=== PATIENT | male | born 1980 | race Caucasian/White ===

== ENCOUNTER 2021-09-11 11:28 | Emergency (ER) | payer OTHER, SELFPAY ==
[2021-09-11 11:45] VITALS: BP 141/89; PULSE 96; RESP 20; O2SAT 96; BMI 30.3
[2021-09-11] MEDS: LORazepam 2 MG/ML INJ 1 MG IV (11:58)
--- NOTE | 2021-09-11 12:16 | ED.ARRPALP ---
HPI - Arrhythmia/Palpitations <Palmer Carballo PA-C - Last Filed: 09/11/21 13:11> General Chief Complaint: Arrhythmia/Palpitations Stated Complaint: Rapid HR,hx PE Time Seen by Provider: 09/11/21 11:56 Source: patient Mode of arrival: Wheelchair History of Present Illness HPI narrative: Patient is a 40-year-old male who presents to the ED reporting tachycardia shortness of breath and associated back pain. Patient reports that last year after receiving the COVID by vaccine he developed a pulmonary embolism couple weeks after receiving the vaccine. His symptoms at that time were very nonspecific majority of his symptoms involved significant back pain with associated shortness of breath. Today his symptoms are similar however his back pain is reported to be not as severe. Prior to arriving to the ED patient reports having the sense of a panic attack with associated tachycardia in the 160s. Patient denies any recent trauma. No associated nausea vomiting diarrhea fever cough congestion. Patient was treated last week for a URI with a Zithromax in of which he completed. Patient denies any cough hemoptysis. Related Data Allergies Allergy/AdvReac Type Severity Reaction Status Date / Time No Known Drug Allergies Allergy Verified 09/11/21 11:46 Review of Systems <Palmer Carballo PA-C - Last Filed: 09/11/21 13:11> Review of Systems ROS Unobtainable: All systems reviewed & are unremarkable except as noted in HPI and below Constitutional Constitutional: Denies chills, Denies fatigue, Denies fever(s), Denies frequent falls, Denies lethargy and Denies weakness Eyes Eyes: Denies change in vision, Denies eye discharge, Denies irritation and Denies loss of vision ENT Ears, Nose, Mouth, and Throat: Denies change in voice, Denies dizziness, Denies neck pain, Denies sore throat and Denies throat swelling Cardiovascular Cardiovascular: Reports chest pain, Denies irregular heart rhythm, Denies lightheadedness, Reports palpitations, Reports dyspnea, Denies dyspnea on exertion and Denies orthopnea Respiratory Respiratory: Denies cough, Reports dyspnea, Denies dyspnea on exertion and Denies wheezing Gastrointestinal Gastrointestinal: Denies abdominal pain, Denies change in bowel habits, Denies diarrhea, Denies nausea and Denies vomiting Genitourinary Genitourinary: Denies hematuria, Denies flank pain, Denies urinary incontinence and Denies urinary urgency Musculoskeletal Musculoskeletal: Denies back pain, Denies muscle weakness, Denies neck pain, Denies numbness and Denies tingling Integumentary/Breasts Skin/Breast: Denies pruritus, Denies erythema, Denies rash and Denies wounds Neurologic Neurologic: Denies behavioral changes, Denies confusion, Denies dizziness, Denies frequent falls, Denies loss of vision, Denies numbness, Denies tingling and Denies weakness Psychiatric Psychiatric: Denies anxiety, Denies behavioral changes, Denies confusion, Denies depression, Denies homicidal ideation and Denies suicidal ideation Endocrine Endocrine: Denies fatigue, Denies flushing and Reports palpitations Hematologic/Lymphatic Hematologic/Lymphatic: Denies easy bruising Allergic/Immunologic Allergic/Immunologic: Denies urticaria, Denies throat swelling and Denies wheezing Patient History <Palmer Carballo PA-C - Last Filed: 09/11/21 13:11> Social History Smoking Status: Never smoker Smoking Status: Never smoker alcohol intake frequency: 0-2 drinks per day Substance Use Type: does not use Exam <Palmer Carballo PA-C - Last Filed: 09/11/21 13:11> Initial Vital Signs Initial Vital Signs: Vital Signs Pulse Rate 96 H 09/11/21 11:45 Respiratory Rate 20 09/11/21 11:45 Blood Pressure 141/89 H 09/11/21 11:45 Pulse Oximetry 96 09/11/21 11:45 Oxygen Delivery Method 09/11/21 11:45 Const General: cooperative, healthy appearing and anxious Nutritional Appearance: average body habitus Orientation: Orientation [facility] Head: normal to inspection, normocephalic and atraumatic Ears: hearing grossly normal bilaterally, external ears normal and TM's normal bilaterally Nose: external nose normal Face and sinus: normal facial exam and sinuses nontender Mouth: oral mucosae normal, lip normal and tongue normal Teeth and gingiva: dentition normal Throat: posterior oropharynx normal Eyes General: Yes appearance normal, both eyes and all related structures Pupils: PERRL Neck Neck: normal visual inspection, full ROM and no meningeal signs Thyroid: thyroid normal Chest Chest: normal inspection of the chest Resp Effort & Inspection: normal respiratory effort and able to speak in complete sentences Auscultation: clear to auscultation bilaterally Percussion: percussion normal Cardio Palpation: normal PMI Rate: regular rate Rhythm: regular rhythm Heart Sounds: S1 normal and S2 normal GI Inspection: normal to inspection Palpation: soft and no hepatosplenomegaly Percussion: normal to percussion Auscultation: normal bowel sounds Skin General: no rashes or lesions noted Neuro General: patient alert, patient awake, patient oriented x3, moves all extremities and CN's II-XI intact bilaterally Psych Appearance: grossly normal Mental Status: mental status grossly normal Speech and Movement: speech and movement normal Mood: anxious mood Affect: anxious affect Attitude: cooperative Thought Process: normal Thought Content: normal Judgment: judgment good <Mike Darby MD - Last Filed: 10/19/21 01:23> Initial Vital Signs Initial Vital Signs: Vital Signs Pulse Rate 96 H 09/11/21 11:45 Respiratory Rate 20 09/11/21 11:45 Blood Pressure 141/89 H 09/11/21 11:45 Pulse Oximetry 96 09/11/21 11:45 Oxygen Delivery Method 09/11/21 11:45 Scores <Palmer Carballo PA-C - Last Filed: 09/11/21 13:11> Wells' Criteria for PE Clinical signs and symptoms of DVT: No PE is #1 Dx or equally likely: No Heart rate > 100: No Immobilization at least 3 days or surg in previous 4 weeks: No History of PE or DVT: Yes Hemoptysis: No Malignancy w/Treatment within 6 months or palliative: No Wells' PE Score total: 1.5 <Mike Darby MD - Last Filed: 10/19/21 01:23> Wells' Criteria for PE Wells' PE Score total: 1.5 Course <Palmer Carballo PA-C - Last Filed: 09/11/21 13:11> Orders Ordered: Discontinued Medications Lorazepam (Lorazepam 2 Mg/Ml Inj) 1 mg IV NOW ONE Stop: 09/11/21 11:48 Last Admin: 09/11/21 11:58 Dose: 1 mg Documented By: SAQIB Reevaluation(s) Reevaluation #1: Patient responded well to anti anxiety medication resting comfortably with no shortness of breath or chest pain. Vital Signs Vital signs: Vital Signs - 8 hr 09/11/21 11:45 Pulse Rate 96 H Respiratory Rate 20 Blood Pressure 141/89 H Pulse Oximetry 96 <Mike Darby MD - Last Filed: 10/19/21 01:23> Orders Ordered: Discontinued Medications Lorazepam (Lorazepam 2 Mg/Ml Inj) 1 mg IV NOW ONE Stop: 09/11/21 11:48 Last Admin: 09/11/21 11:58 Dose: 1 mg Documented By: BJT Vital Signs Vital signs: Vital Signs - 8 hr 09/11/21 11:45 Pulse Rate 96 H Respiratory Rate 20 Blood Pressure 141/89 H Pulse Oximetry 96 MDM - Arrhythmia/Palpitations <Palmer Carballo PA-C - Last Filed: 09/11/21 13:11> Differential Diagnosis Differential diagnosis: Likely anxiety Lab Data Result diagrams: 09/11/21 11:45 09/11/21 11:45 Labs: Lab Results 09/11/21 09/11/21 09/11/21 Range/Units 11:45 11:45 11:45 WBC 6.0 (4.5-11.0) X10^3/uL RBC 5.11 (4.5-5.9) X10^6/uL Hgb 15.1 (13.5-17.5) g/dL Hct 42.5 (41-53) % MCV 83.1 (80-100) fL MCH 29.6 (26-34) PG MCHC 35.6 (30-36) % RDW 13.0 (11.6-14.8) % Plt Count 152 (150-400) X10^3/uL Neut % (Auto) 57.6 (50-75) % Lymph % (Auto) 31.8 (25-40) % [place] % (Auto) 7.6 (3-14) % Eos % (Auto) 2.4 (2-4) % Baso % (Auto) 0.6 (0-2) % Neut # (Auto) 3400 (1454-2479) /uL Lymph # (Auto) 1900 (5229-2899) /uL [place] # (Auto) 400 (0-900) /uL Eos # (Auto) 100 (0-450) /uL Baso # (Auto) 0 (0-100) /uL D-Dimer < 200 (<230) ng/mL Sodium 139 (137-145) mmol/L Potassium 3.8 (3.4-5.1) mmol/L Chloride 105 (98-107) mmol/L Carbon Dioxide 20 L (22-32) mmol/L BUN 15 (9-20) mg/dL Creatinine 0.83 (0.66-1.25) mg/dL Estimated GFR > 60 (>60) mL/min BUN/Creatinine Ratio 18.1 (6-22) Glucose 128 H (70-100) mg/dL Calcium 9.1 (8.4-10.2) mg/dL Total Bilirubin 0.5 (0.2-1.3) mg/dL AST 37 (17-59) IU/L ALT 54 H (<50) IU/L Alkaline Phosphatase 48 (38-126) U/L Total Creatine Kinase 217 H (55-170) U/L CK-MB (CK-2) 1.87 (<2.37) ng/mL CK-MB (CK-2) Rel Index 0.9 L (1.5-5.0) % Troponin I < 0.012 (0.01-0.034) ng/mL Total Protein 8.1 (6.3-8.2) g/dL Albumin 4.8 (3.5-5.0) g/dL Globulin 3.3 (1.7-4.1) g/dL Albumin/Globulin Ratio 1.5 (1.0-2.8) Imaging Data CT scan - chest: Radiologist's Impresson: [place] [address] CT Scan Report Signed Patient: Carlos Witt MR#: [id number] : 1980 Acct:[id number] Age/Sex: 40 / M Date of Service: 09/11/21 Loc: ED Accession Number: [id number] ?? Procedure: CT angio chest PE protocol Ordering Provider: Palmer Carballo P.A-C PROCEDURE:? CT ANGIO CHEST PE PROTOCOL ? INDICATIONS:? H/O PE, Shortness of breath ? TECHNIQUE:? After the administration of intravenous contrast, 2 mm thick sections acquired from the pulmonary apices to the posterior costophrenic angles.? 3-dimensional maximum intensity projection (MIP) coronal and sagittal reformats were then acquired through the thorax.? For radiation dose reduction, the following was used:? automated exposure control, adjustment of mA and/or kV according to patient size.? ? COMPARISON:? None. ? FINDINGS:? Image quality:? Excellent.? ? Pulmonary arteries:? Pulmonary arteries are normal in size, and demonstrate no intraluminal filling defects to suggest central pulmonary embolism.? ? Lungs and pleura:? A focus of likely atelectasis can be seen within the right posterior costophrenic angle.? No pleural effusions or pneumothorax.? Central and peripheral airways are patent.? ? Mediastinum:? Heart size is normal, without pericardial effusion.? No mediastinal or hilar adenopathy.? Thoracic aorta is normal in caliber and enhancement.? Esophagus is normal in caliber, without hiatal hernia.? ? Bones and chest wall:? No suspicious bony lesions.? Ribs and thoracic spine appear intact throughout.? Thyroid gland demonstrates no significant abnormality.? No axillary or supraclavicular adenopathy.? ? Abdomen:? An enlarged, fatty liver is seen. The visualized portions of the upper abdominal structures are otherwise unremarkable for imaging technique. ? ? ? IMPRESSION:? Negative for pulmonary embolism. ? Incidental note is made of: Enlarged, fatty liver ? Dictated by: Jimi Keller M.D. on 09/11/2021 at 11:40 ? ? Approved by: Jimi Keller M.D. on 09/11/2021 at 11:42?? ECG Data Attestation: I personally reviewed and interpreted this ECG as follows: Prior ECG tracings: not available for review Interpretation: Sinus rhythm no acute changes. MDM Narrative Medical decision making narrative: Patient was evaluated today to rule out PE. Patient has a previous history of pulmonary embolism after receiving the COVID vaccine last year. At that time his symptoms seem to be nonspecific was having some associated back pain and was found to have a P. Today he is having similar symptoms however not as severe he has had some emotional difficulty dealing with the fact that he developed a pulmonary embolism. 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 He presents today to be evaluated to verify that he does not have any signs of an early PE. Based on his history of nonspecific symptoms and even though his wells PE score was 1.5 I still decided to do a CT angio to rule out PE. CT did identify a associated fatty liver disease which I discussed with the patient PET. Patient reports he has had some alcohol consumption in the past. Patient will be discharged home and told to follow-up with PCP for any further concerns. <Mike Darby MD - Last Filed: 10/19/21 01:23> Lab Data Labs: Lab Results 09/11/21 09/11/21 09/11/21 Range/Units 11:45 11:45 11:45 WBC 6.0 (4.5-11.0) X10^3/uL RBC 5.11 (4.5-5.9) X10^6/uL Hgb 15.1 (13.5-17.5) g/dL Hct 42.5 (41-53) % MCV 83.1 (80-100) fL MCH 29.6 (26-34) PG MCHC 35.6 (30-36) % RDW 13.0 (11.6-14.8) % Plt Count 152 (150-400) X10^3/uL Neut % (Auto) 57.6 (50-75) % Lymph % (Auto) 31.8 (25-40) % [place] % (Auto) 7.6 (3-14) % Eos % (Auto) 2.4 (2-4) % Baso % (Auto) 0.6 (0-2) % Neut # (Auto) 3400 (7331-7468) /uL Lymph # (Auto) 1900 (4394-5875) /uL [place] # (Auto) 400 (0-900) /uL Eos # (Auto) 100 (0-450) /uL Baso # (Auto) 0 (0-100) /uL D-Dimer < 200 (<230) ng/mL Sodium 139 (137-145) mmol/L Potassium 3.8 (3.4-5.1) mmol/L Chloride 105 (98-107) mmol/L Carbon Dioxide 20 L (22-32) mmol/L BUN 15 (9-20) mg/dL Creatinine 0.83 (0.66-1.25) mg/dL Estimated GFR > 60 (>60) mL/min BUN/Creatinine Ratio 18.1 (6-22) Glucose 128 H (70-100) mg/dL Calcium 9.1 (8.4-10.2) mg/dL Total Bilirubin 0.5 (0.2-1.3) mg/dL AST 37 (17-59) IU/L ALT 54 H (<50) IU/L Alkaline Phosphatase 48 (38-126) U/L Total Creatine Kinase 217 H (55-170) U/L CK-MB (CK-2) 1.87 (<2.37) ng/mL CK-MB (CK-2) Rel Index 0.9 L (1.5-5.0) % Troponin I < 0.012 (0.01-0.034) ng/mL Total Protein 8.1 (6.3-8.2) g/dL Albumin 4.8 (3.5-5.0) g/dL Globulin 3.3 (1.7-4.1) g/dL Albumin/Globulin Ratio 1.5 (1.0-2.8) Discharge Plan Departure Patient Disposition: Home Clinical Impression: Anxiety, Sinus tachycardia, Fatty liver Instructions: DI for Nonalcoholic Fatty Liver Disease Activity Restrictions/Additional Instructions: Your CT scan showed an incidental finding of fatty liver disease of which I would recommend stop consuming any alcohol and follow-up with her PCP for monitoring. There was no evidence of a pulmonary embolism and if your symptoms worsen or you start developing increased shortness of breath you can return to the ED for a further evaluation. Thank you for the opportunity to care for you today. <Mike Darby MD - Last Filed: 10/19/21 01:23> [facility] Attestation: I was immediately available in the department for consultation. ?This documentation has been reviewed and I agree with assessment and plan. Supervised by Mike Darby MD
[2021-09-11 12:20] LABS: Add Manual Diff / Slide Review NO; Basophils Absolute Auto 0 /uL (0-100); Basophils Percent Auto 0.6 % (0-2); Eosinophils Absolute Auto 100 /uL (0-450); Eosinophils Percent Auto 2.4 % (2-4); Hematocrit 42.5 % (41-53); Hemoglobin 15.1 g/dL (13.5-17.5); Lymphocytes Absolute Auto 1900 /uL (1100-4500); Lymphocytes Percent Auto 31.8 % (25-40); Mean Corpuscular HGB Conc 35.6 % (30-36); Mean Corpuscular Hemoglobin 29.6 PG (26-34); Mean Corpuscular Volume 83.1 fL (80-100); Monocytes Absolute Auto 400 /uL (0-900); Monocytes Percent Auto 7.6 % (3-14); Neutrophils Absolute Auto 3400 /uL (1500-7000); Neutrophils Percent Auto 57.6 % (50-75); Platelet Count 152 X10^3/uL (150-400); Red Blood Cell Count 5.11 X10^6/uL (4.5-5.9)
[2021-09-11 12:28] LABS: D Dimer < 200 ng/mL (<230)
[2021-09-11 12:35] LABS: Alanine Aminotransferase 54 IU/L (<50); Albumin 4.8 g/dL (3.5-5.0); Albumin Globulin Ratio 1.5 (1.0-2.8); Alkaline Phosphatase 48 U/L (38-126); Aspartate Aminotransferase 37 IU/L (17-59); BUN Creatinine Ratio 18.1 (6-22); Bilirubin Total 0.5 mg/dL (0.2-1.3); Blood Urea Nitrogen 15 mg/dL (9-20); Calcium 9.1 mg/dL (8.4-10.2); Carbon Dioxide 20 mmol/L (22-32); Chloride 105 mmol/L (98-107); Creatine Kinase 217 U/L (55-170); Estimated Glomerular Filt Rate > 60 mL/min (>60); Globulin 3.3 g/dL (1.7-4.1); Glucose 128 mg/dL (70-100); HEMOLYSIS 15 (0-50); Potassium 3.8 mmol/L (3.4-5.1); Sodium 139 mmol/L (137-145); Total Protein 8.1 g/dL (6.3-8.2)
--- NOTE | 2021-09-11 12:40 | DI.CT.S_ITS ---
PROCEDURE: CT ANGIO CHEST PE PROTOCOL INDICATIONS: H/O PE, Shortness of breath TECHNIQUE: After the administration of intravenous contrast, 2 mm thick sections acquired from the pulmonary apices to the posterior costophrenic angles. 3-dimensional maximum intensity projection (MIP) coronal and sagittal reformats were then acquired through the thorax. For radiation dose reduction, the following was used: automated exposure control, adjustment of mA and/or kV according to patient size. COMPARISON: None. FINDINGS: Image quality: Excellent. Pulmonary arteries: Pulmonary arteries are normal in size, and demonstrate no intraluminal filling defects to suggest central pulmonary embolism. Lungs and pleura: A focus of likely atelectasis can be seen within the right posterior costophrenic angle. No pleural effusions or pneumothorax. Central and peripheral airways are patent. Mediastinum: Heart size is normal, without pericardial effusion. No mediastinal or hilar adenopathy. Thoracic aorta is normal in caliber and enhancement. Esophagus is normal in caliber, without hiatal hernia. Bones and chest wall: No suspicious bony lesions. Ribs and thoracic spine appear intact throughout. Thyroid gland demonstrates no significant abnormality. No axillary or supraclavicular adenopathy. Abdomen: An enlarged, fatty liver is seen. The visualized portions of the upper abdominal structures are otherwise unremarkable for imaging technique. IMPRESSION: Negative for pulmonary embolism. Incidental note is made of: Enlarged, fatty liver Dictated by: Jimi Keller M.D. on 09/11/2021 at 11:40 Approved by: Jimi Keller M.D. on 09/11/2021 at 11:42
[2021-09-11 12:45] LABS: Troponin I < 0.012 ng/mL (0.01-0.034)
[2021-09-11 12:50] LABS: CKMB % Relative Index 0.9 % (1.5-5.0); Creatine Kinase MB 1.87 ng/mL (<2.37)
[2021-09-11 13:22] VITALS: BP 126/63; PULSE 80; RESP 11; O2SAT 97
== END 2021-09-11 13:23 | disposition home or self-care (01) ==
PROVIDERS: Emergency Provider Physician Assistant
DX: F41.9 Anxiety disorder, unspecified (principal); R00.0 Tachycardia, unspecified; K76.0 Fatty (change of) liver, not elsewhere classified; R06.02 Shortness of breath; M54.9 Dorsalgia, unspecified; Z86.711 Personal history of pulmonary embolism
CPT/HCPCS: 71275; 80053; 82550; 82553; 84484; 85025; 85379; 93005; 93010; 96374; 99283; 99284; J2060

== ENCOUNTER → 2021-11-20 16:07 | Outpatient (CLI) | payer OTHER, SELFPAY ==
--- NOTE | 2021-11-20 16:21 | DI.RAD.S_ITS ---
PROCEDURE: XR CERVICAL SPINE 2V OR 3V INDICATIONS: fall TECHNIQUE: 3 view(s) of the cervical spine were acquired. COMPARISON: None. FINDINGS: Bones: No fractures or dislocations to the C7-T1 level. The lateral masses of C1 appear intact on the odontoid view. No suspicious bony lesions. There is overall straightening of normal cervical curvature. Soft tissues: No prevertebral soft tissue swelling. IMPRESSION: No visualized acute fracture or dislocation. However, if clinical concern and/or pain persist, short interval imaging followup in 7-10 days is recommended, as occult injury cannot be definitively excluded. Dictated by: Татьяна Huang M.D. on 11/20/2021 at 17:04 Approved by: Татьяна Huang M.D. on 11/20/2021 at 17:04
--- NOTE | 2021-11-20 16:21 | DI.RAD.S_ITS ---
PROCEDURE: XR SHOULDER LT MIN 2V INDICATIONS: fall TECHNIQUE: 3 views of the shoulder were acquired. COMPARISON: None. FINDINGS: Bones: No fractures or dislocations. No suspicious bony lesions. Visualized ribs appear intact. Soft tissues: No suspicious soft tissue calcifications. IMPRESSION: No visualized acute fracture or dislocation. However, if clinical concern and/or pain persist, short interval imaging followup in 7-10 days is recommended, as occult injury cannot be definitively excluded. Dictated by: Татьяна Huang M.D. on 11/20/2021 at 17:04 Approved by: Татьяна Huang M.D. on 11/20/2021 at 17:04
== END ==
PROVIDERS: Referring Provider Physician Assistant; Visit Provider Physician Assistant
DX: M54.2 Cervicalgia (principal); M25.512 Pain in left shoulder
CPT/HCPCS: 72040; 73030